=== PATIENT | male | born 1990 | race African-American/Black ===

== ENCOUNTER 2019-06-18 09:41 | Emergency (ER) | payer SELFPAY ==
[~2019-06-18] VITALS: Ht 185.4 cm; Wt 88.5 kg
--- NOTE | 2019-06-18 10:03 | NUR ---
ED Nurse Note: Pt came in for spider bite for past 3 days. SKin LLE indurated, no open wound, pt denies pain, ROM 5/5. Pt skin indurated LLE. VSS. No acute distress.
[2019-06-18 10:19] VITALS: BP 127/82
[2019-06-18] MEDS ORDERED: CEPHALEXIN500 MG ORAL (10:21)
[2019-06-18] MEDS ORDERED: BACTRIM DS TAB1 EAC1 ORAL (10:21)
--- NOTE | 2019-06-18 11:06 | NUR ---
ED Nurse Note: Pt provided living address [address] [place] [address] [address], [place], [place]. Registration Raissa is inputting.
--- NOTE | 2019-06-18 11:07 | NUR ---
ER DISCHARGE NOTE: Patient is cleared to be discharged per ERMD, pt is aox4, on room air, with stable vital signs. pt was given dc and prescription instructions, pt was able to verbalize understanding, pt id band removed. pt is able to ambulate with steady gait. pt took all belongings.
[2019-06-18 11:18] VITALS: BP 101/79
--- NOTE | 2019-06-18 12:57 | Emergency Room Report ---
History of Present Illness General Chief Complaint: Skin Rash/Abscess Source: Patient Present Illness HPI Patient presents with complaints of a lesion on the left lower leg which she feels is possibly consistent with spider bite There is some mild redness as well Denies any fevers or chills denies any other trauma denies any abdominal pain denies any headache The lesion was first noticed several days ago and feels that it has persisted Allergies: Coded Allergies: No Known Allergies (Unverified , 06/18/19) Patient History Past Medical History: see triage record Reviewed Nursing Documentation: PMH: Agreed; PSxH: Agreed Nursing Documentation-PMH Past Medical History: No Stated History Review of Systems All Other Systems: negative except mentioned in HPI Physical Exam Vital Signs Date Time Temp Pulse Resp B/P (MAP) Pulse Ox O2 Delivery O2 Flow Rate FiO2 06/18/19 09:49 98.4 91 20 125/82 (96) 100 Room Air Sp02 EP Interpretation: reviewed, normal General Appearance: well appearing, no apparent distress Head: normocephalic, atraumatic Eyes: bilateral eye PERRL, bilateral eye EOMI ENT: EOM grossly intact Neck: supple Respiratory: lungs clear, no respiratory distress, no retraction Cardiovascular #1: regular rate, rhythm Gastrointestinal: non tender, soft Musculoskeletal: normal inspection Neurologic: alert Skin: other - Small area of scab formation with mild surrounding erythema no obvious fluctuance, no flaring Lymphatic: no adenopathy Medical Decision Making Diagnostic Impression: Primary Impression: cellulitis ER Course Patient appears to have findings consistent with cellulitis Consideration for abscess is made however does not appear to be clinically present at this time Patient placed on oral antibiotics and will have close outpatient follow-up Last Vital Signs Date Time Temp Pulse Resp B/P (MAP) Pulse Ox O2 Delivery O2 Flow Rate FiO2 06/18/19 11:18 98.9 79 18 101/79 100 Room Air Status: unchanged Disposition: HOME, SELF-CARE Condition: Stable Scripts Trimethoprim/Sulfamethoxazole 160/800* (BACTRIM DS TABLET*) 1 Each Tablet 1 TAB ORAL Q12H, #14 TAB 0 Refills Prov: Nette De Jesus DO 06/18/19 Cephalexin* (KEFLEX*) 500 Mg Capsule 500 MG ORAL EVERY 6 HOURS for 7 Days, CAP Prov: Nette De Jesus DO 06/18/19 Referrals: NOT CHOSEN IPA/MD,REFERRING (PCP) [facility] Jose Parra. [facility], [facility] Patient Instructions: Cellulitis, [id number] Additional Instructions: Patient is provided with the discharge instructions notified to follow up with primary doctor in the next 2-3 days otherwise return to the er with any worsening symptoms. Please note that this report is being documented using DRAGON technology. This can lead to erroneous entry secondary to incorrect interpretation by the dictating instrument. Nette De Jesus DO Jun 18, 2019 12:57
== END 2019-06-18 11:18 | disposition home or self-care (01) ==
LOC: EMR 10:30
DX: L03.116 Cellulitis of left lower limb (principal)
CPT/HCPCS: 99282